=== PATIENT | male | born 1940 | race Hispanic/Latino ===

== ENCOUNTER 2019-01-29 09:19 | Day surgery (SDC) | payer BC ==
[~2019-01-29 09:19] MED LIST: ANCEF/STERILE WATER 2 GM/20 ML IV NR; ANTIBIOTIC OINT TP ONE; BACITRACIN ONE; LACTATED RINGERS 1,000 ML IV SCH; MARCAINE 0.5% INFILTRATI ONE; NACL 0.9% 50 ML ONE; XYLOCAINE 1%/ EPI 1:100,000 INFILTRATI ONE
--- NOTE | 2019-01-29 10:20 | Anesthesia Consultation ---
Anesthesia Consult and Med Hx Date of service: 01/29/19 - Airway Anesthetic Teeth Evaluation: Good ROM Head & Neck: Adequate Mental/Hyoid Distance: Adequate Mallampati Class: Class III Intubation Access Assessment: Possibly Difficult - Pulmonary Exam CTA: Yes - Cardiac Exam Cardiac Exam: RRR - Pre-Operative Health Status ASA Pre-Surgery Classification: ASA3 Proposed Anesthetic Plan: General - Pulmonary Hx Smoking: Yes (STOPPED X 2 YRS- 1 PPD X 60 YRS) Hx Sleep Apnea: Yes (DX SLEEP APNEA WITH CPAP USE) - Cardiovascular System Hx Hypertension: Yes (X 10 YRS) - Central Nervous System Hx Back Pain: Yes (NECK AND LOW BACK PAIN) - Other Systems Hx Cancer: Yes (SKIN CANCER ON FACE REMOVED X 3)
--- NOTE | 2019-01-29 10:21 | Anesthesia Day of Surgery ---
Anesthesia Day of Surgery - Day of Surgery Patient Examined: Yes Patient H&P Reviewed: Yes Patient is NPO: Yes Beta Blockers: No Cardiac Clearance: No Pulmonary Clearance: No Bello's Test: N/A
[2019-01-29] MEDS ORDERED: DILAUDID IV PRN (10:22)
[2019-01-29] MEDS ORDERED: XYLOCAINE MPF 2% ONE (10:36)
[2019-01-29] MEDS ORDERED: DIPRIVAN 10 MG/ML IV ONE ×2 (10:36→11:17)
[2019-01-29] MEDS ORDERED: SUBLIMAZE ONE (10:38)
[2019-01-29] MEDS ORDERED: BACITRACIN IR ONE (12:49)
[2019-01-29] MEDS ORDERED: MARCAINE 0.5% INFILTRATI ONE ×2 (12:59)
[2019-01-29] MEDS ORDERED: XYLOCAINE 1% 20 mL INFILTRATI ONE ×2 (12:59)
[2019-01-29] MEDS ORDERED: ANTIBIOTIC OINT TP ONE (14:08)
[2019-01-29 17:27] VITALS: BP 118/62
--- NOTE | 2019-02-01 07:51 | XRay Report ---
THORACIC SPINE, 2 VIEWS: HISTORY: back pain. Fluoroscopy was provided by radiology during neurostimulator placement. PA and lateral fluoroscopic images of the lower thoracic spine were obtained dorsal column stimulator placement. The visualized thoracic spine is within normal limits. IMPRESSION: Stimulator placement. Unremarkable lower thoracic spine.
--- NOTE | 2019-02-04 18:21 | Operative Report ---
Operative Report Operative Report: DATE OF SERVICE: 01/29/2019 PREOPERATIVE DIAGNOSIS: 1. Chronic lower extremity radiculopathy. 2. Chronic axial low back pain. 3. Degenerative disc disease of lumbar spine. 4. Postlaminectomy syndrome. POSTOPERATIVE DIAGNOSIS: 1. Chronic lower extremity radiculopathy. 2. Chronic axial low back pain. 3. Degenerative disc disease of lumbar spine. 4. Postlaminectomy syndrome. PROCEDURE PERFORMED: 1. Spinal cord stimulator implantation with percutaneous insertion of dual epidural octapolar leadsthoracic spine. 2. Implantation of permanent pulse generator/commanding officer homicide squad. 2. Programming of permanent neurostimulator [id number] minutes. SURGEON: JUNIOR ELLIS M.D. ASSISTANCE SURGEON: SAMIR NEWMAN M.D. ANESTHESIA: GETA, 1% lidocaine local EBL: 15 mL DESCRIPTION OF PROCEDURE: Following informed consent, the patient was brought to the operative suite and general endotracheal anesthesia was performed without incident. The patient was then carefully moved to onto the operative table in the prone position and all pressure points were meticulously padded. The back was sterilely prepped and draped in routine fashion. Patient received 2 g of Ancef intravenously for antimicrobial prophylaxis. A C-arm was brought into place with attention turned to the lumbar spine on the right side. Attention was turned toward the right T12-L1 interlaminar space. A skin incision was made with a #11 blade at the level of L2-3 after injection of 1% lidocaine with epinephrine for local anesthesia. A 22-gauge spinal needle was advanced to the L1 lamina with additional placement of 0.5% bupivacaine. A 14-gauge Tuohy needle was then advanced under fluoroscopic guidance to the right interlaminar space and the epidural space was entered using [id number] technique. Aspiration was negative for blood and CSF. A guidewire was easily passed into the dorsal epidural space. This was followed by placement of a permanent 8 contact- 60 cm lead ([employer], [employer], SN [id number]) which was guided in the cephalad direction under fluoroscopic guidance to the upper aspect of T7 to the left of midline. Position was confirmed in both the AP and lateral projections and appeared satisfactory. Using identical technique, a second 14-gauge Tuohy needle was advanced under fluoroscopic guidance parallel to the initial Touhy needle to the T12-L1 interlaminar space. The posterior epidural space was entered below the initial lead placement. Aspiration was again negative for blood and CSF. A second octapolar 60 cm permanent 8 contact lead ([employer], SN [id number]) was guided in a cephalad direction under fluoroscopic guidance by Dr. Samir Newman to the superior aspect of T7 on the right. Both leads were positioned in a paramedian location. Position was again confirmed in the AP and lateral projections which appeared satisfactory. A 5 cm skin incision was then made after injection of 1% lidocaine with epinephrine, connecting the 2 needle entry points. The tissues were sharply and bluntly dissected down to the dorsal lumbar fascia. Electrocautery was utilized for hemostasis. Once the adipose tissue was stripped from the dorsal lumbar fascia, The leads were anchored to the fascia using Davis-Lock anchors ([facility] Lot [id number]) 2-0 silk sutures. The anchors were then tightened following guidewire removal and the leads were secured. Position was checked with fluoroscopy. The wound was then copiously irrigated with antibiotic solution. Following injection of 1% lidocaine with epinephrine, a second 6 cm skin incision was made overlying the skin superior to the left iliac crest. Using blunt and sharp dissection, a pocket was created within the subcutaneous adipose tissue for insertion of the implantable pulse generator. Hemostasis was achieved with electrocautery and placement of Quick Clot hemostatic material. The epidural leads were then tunneled to the surgically created pocket and connected to the pulse generator/commanding officer homicide squad ([facility], [employer], SN [id number]). The pocket incision was copiously irrigated with antibiotic solution. The IPG was easily placed within the surgical pocket. Impedance was checked and found satisfactory. The paramedian incision was closed in with deep 0 Vicryl interrupted sutures, subcutaneous 2-0 Vicryl interrupted sutures and stainless steel alvaro were utilized for skin approximation. The left flank incision was closed in [address] Samir Newman with 0 Vicryl interrupted deep sutures, 2-0 Vicryl interrupted subcutaneous sutures and stainless steel alvaro. Sterile dressings are placed over both incisions. Patient was then turned onto the gurney in the supine position and taken to the PACU where he was noted to be stable cardiopulmonary and neurologic condition. The IPG was then programmed. Thirty minutes were spent during post implantation programming of the permanent system including frequency, pulse amplitude, pulse width, pulse duration and impedance check. Programming was performed by the [facility] neuromodulation clinical specialist under the direct physician supervision of Dr. Junior Ellis. The patient was provided with 3 separate programs for use during the initial post implantation interval. CONDITION AT DISCHARGE: Good. FOLLOW-UP: In office in 7 days for wound check.
== END 2019-01-29 09:20 | disposition home or self-care (01) ==
LOC: OR 09:19
PROVIDERS: ATTEND Radiology Diagnostic Radiology
DX: M51.36 Other intervertebral disc degeneration, lumbar region (principal); M96.1 Postlaminectomy syndrome, not elsewhere classified; I10 Essential (primary) hypertension; G47.30 Sleep apnea, unspecified; M19.90 Unspecified osteoarthritis, unspecified site; F32.9 Major depressive disorder, single episode, unspecified; F41.9 Anxiety disorder, unspecified; Z85.89 Personal history of malignant neoplasm of other organs and systems; Z79.899 Other long term (current) drug therapy; Z79.82 Long term (current) use of aspirin; Z87.891 Personal history of nicotine dependence; Z88.8 Allergy status to other drugs, medicaments and biological substances
CPT/HCPCS: 36415; 63650; 63685; 72070; 84132; 95971; C1767; C1778; J0690; J2704; J3010; J7120